=== PATIENT | male | born 1945 | race Caucasian/White ===

== ENCOUNTER 2024-01-04 14:39 | Emergency (ER) | payer MEDICARE ==
[~2024-01-04] VITALS: Ht 177.8 cm; Wt 86.4 kg
[2024-01-04 14:46] VITALS: BP 131/81; PULSE 67; RESP 16; TEMP 97.6; O2SAT 95
[2024-01-04] MEDS ORDERED: CIPR-259 PO (16:10)
[2024-01-04] MEDS: CefTRIAXone 1000mg IM Kit (w/lidocaine diluent) IM ONE (16:13)
== END 2024-01-04 16:17 | disposition home or self-care (01) ==
LOC: ER 14:40
DX: S91.341A Puncture wound with foreign body, right foot, initial encounter (principal); X58.XXXA Exposure to other specified factors, initial encounter; Y93.89 Activity, other specified; Y92.89 Other specified places as the place of occurrence of the external cause; Y99.8 Other external cause status
CPT/HCPCS: 73620; 73630; 96372; 99284; J0696